=== PATIENT | male | born 1990 | race African-American/Black ===

== ENCOUNTER 2017-03-28 01:43 | Emergency (ER) | payer OTHER ==
[2017-03-28 02:07] VITALS: BP 133/81
[2017-03-28] MEDS ORDERED: PROPARACAINE 0.5% OPHTH DROPS 15 ML EACHEYE STA (02:22)
[2017-03-28] MEDS ORDERED: PROPARACAINE 0.5% OPHTH DROPS 15 ML ONE ×3 (02:23→02:32)
[2017-03-28] MEDS ORDERED: POLYMYXIN B/TRIMETH OPHTH DROPS RIGHTEYE STA (02:42)
--- NOTE | 2017-03-28 02:46 | ED Physician Documentation ---
PD HPI OPHTHO - Stated complaint Stated Complaint: EYE PAIN - Chief complaint Chief Complaint: Heent - History obtained from History obtained from: Patient - History of Present Illness Timing - onset: How many days ago (4) Timing - details: Abrupt onset Location: Right Quality / character: Aching, Throbbing Associated symptoms: Redness Contributing factors: Wears glasses. No: Wears contacts Similar symptoms before: Has not had sx before Recently seen: Not recently seen - Additional information Additional information: Patient is a 26 year old male with no significant past medical history who is presenting to the emergency department for right sided eye pain. Patient states that he hit his eye on tuesday while playing basketball. Patient states that it originally seemed ok but over the last few days it got progressively worse and got more red and irritated. Review of Systems Constitutional: denies: Fever, Chills Eyes: reports: Decreased vision, Photophobia, Irritation Ears: denies: Ear pain, Drainage/discharge Nose: reports: Reviewed and negative Throat: reports: Reviewed and negative Cardiac: reports: Reviewed and negative Respiratory: reports: Reviewed and negative GI: reports: Reviewed and negative : reports: Reviewed and negative Skin: reports: Reviewed and negative Musculoskeletal: denies: Neck pain, Back pain Neurologic: denies: Generalized weakness, Focal weakness, Headache Psychiatric: denies: Depressed Immunocompromised: denies: Immunocompromised PD PAST MEDICAL HISTORY - Past Medical History Past Medical History: No - Past Surgical History Past Surgical History: No - Allergies Allergies/Adverse Reactions: Allergies Allergy/AdvReac Type Severity Reaction Status Date / Time No Known Drug Allergies Allergy Verified 03/28/17 02:05 - Social History Does the pt smoke?: No Smoking Status: Never smoker Does the pt drink ETOH?: No Does the pt have substance abuse?: No - Immunizations Immunizations are current?: Yes - POLST Patient has POLST: No PD ED PE NORMAL - General General: Alert and oriented X 3 - HEENT HEENT: Atraumatic, Moist mucous membranes, Pharynx benign - Neck Neck: Supple, no meningeal sign, No JVD - Cardiac Cardiac: RRR - Respiratory Respiratory: No respiratory distress - Abdomen Abdomen: Soft, Non tender, Non distended - Derm Derm: Normal color, Warm and dry, No rash - Extremities Extremities: No deformity, No tenderness to palpate, No edema - Neuro Neuro: Alert and oriented X 3, No motor deficit, No sensory deficit, Normal speech - Psych Psych: Normal mood, Normal affect PD ED PE EXPANDED - Eyes Eyes: Visual acuity - see nn, Right eye, Injected conj/sclera, Corneal abrasion Results - Vitals Vitals: Vital Signs - 24 hr 03/28/17 01:57 Temperature 36.6 C Heart Rate 74 Respiratory 18 Rate Blood Pressure 133/81 H O2 Saturation 100 Oxygen O2 Source Room air PD MEDICAL DECISION MAKING - ED course Complexity details: reviewed old records, reviewed results, re-evaluated patient , considered differential, d/w patient ED course: Patient was seen and examined at bedside. eye was viewed with fluoresceine and a corneal abrasion was present. Patient was treated with polytrim and was stable for discharge with outpatient follow up. Departure - Departure Disposition: 01 Home, Self Care Clinical Impression: Corneal abrasion Condition: Good Instructions: ED Eye Injury Corneal Abrasion Comments: Your symptoms today are being caused by a corneal abrasion. You will need to take the antibiotic drops four times a day for the next 10 days. You can take motrin or tylenol as needed for pain. You should follow up with the base physician if your symptoms persist after a few days. You can return to the emergency department at any time for new, worsening or uncontrollable symptoms.
[2017-03-28] MEDS ORDERED: POLYMYXIN B/TRIMETH OPHTH DROPS ONE (02:49)
== END 2017-03-28 02:59 | disposition home or self-care (01) ==
LOC: ED 01:43
DX: S05.01XA Injury of conjunctiva and corneal abrasion without foreign body, right eye, initial encounter (principal); X58.XXXA Exposure to other specified factors, initial encounter
CPT/HCPCS: 99283; A9270; J3490